=== PATIENT | male | born 1950 | race Caucasian/White ===

== ENCOUNTER 2016-12-21 05:49 | Day surgery (SDC) | payer BC ==
[~2016-12-21] VITALS: Ht 167.6 cm; Wt 91.7 kg
[~2016-12-21 05:49] MED LIST: ALBU6.7H4 IH; ASPI-558 PO; BENA10TA3 PO; CARV6.252 PO; DOXA8TAB3 PO; FISH1CAP51 PO; IBUP-1324 PO; MULT-37 PO; OMEP-29 PO; SIMV20TA89 PO
--- OUTSIDE RECORDS SUMMARY | 2016-12-21 05:53 | XMS REPORT | Continuity of Care Document ---
Author Author [facility] Address Unknown Phone Unavailable Allergies Active Description Code Type Severity Reaction Onset Reported/Identified Relationship to Patient Clinical Status Yes No Known Allergies No Known Allergies Drug Allergy Unknown N/A 08/10/2015 Medications Problems Date Dx Coded Attending Type Code Diagnosis Diagnosed By 08/10/2015 Tony Millard MD E78.5 HYPERLIPIDEMIA, UNSPECIFIED 08/10/2015 Tony Millard MD E87.1 HYPO-OSMOLALITY AND HYPONATREMIA 08/10/2015 Tony Millard MD G47.33 OBSTRUCTIVE SLEEP APNEA (ADULT) (PEDIATRIC ) 08/10/2015 Tony Millard MD I10 ESSENTIAL (PRIMARY) HYPERTENSION 08/10/2015 Tony Millard MD J45.909 UNSPECIFIED ASTHMA, UNCOMPLICATED 08/10/2015 Tony Millard MD K21.9 GASTRO-ESOPHAGEAL REFLUX DISEASE WITHOUT ESOPHAGIT 08/10/2015 Tony Millard MD M48.06 SPINAL STENOSIS, LUMBAR REGION 08/10/2015 Tony Millard MD M54.16 RADICULOPATHY, LUMBAR REGION 08/10/2015 Tony Millard MD M54.5 LOW BACK PAIN 08/10/2015 Tony Millard MD M96.1 POSTLAMINECTOMY SYNDROME, NOT ELSEWHERE CLASSIFIED 08/10/2015 Tony Millard MD M48.06 SPINAL STENOSIS, LUMBAR REGION 08/10/2015 Tony Millard MD M54.5 LOW BACK PAIN Procedures Code Description Performed By Performed On 6LN06HC EXCISION OF LUMBAR VERTEBRAL DISC, OPEN APPROACH Tony Millard MD 08/10/2015 [id number] FUSION 2-4 L JT W INTBD FUS DEV, ANT APPR A COL O Tony Millard MD 08/10/2015 [id number] FUSION 2-4 L JT W NONAUT SUB, ANT APPR A COLFREEDOM MD, [place] 08/10/2015 Results Test Result Range CBC - 08/11/15 05:33 MEAN CELL HGB 28.5 pg 27.0-33.0 MEAN CELL HGB CONCENTRATION 34.9 g/dL 32.0-37.0 MEAN CELL VOLUME 81.7 fl 80.0-100.0 RED BLOOD CELL 3.93 m/cumm 4.00-6.00 RED CELL DISTRIBUTION WIDTH 14.0 % 11.0- 15.6 WHITE BLOOD CELL 7.4 k/cumm 5.0-10.0 HEMOGLOBIN 11.2 gm/dL 14.0-18.0 HEMATOCRIT 32.1 % 40.0-54.0 PLATELET COUNT 187 k/cumm 150-400 METABOLIC PANEL, BASIC - 08/11/15 05:33 POTASSIUM 4.1 mmol/L 3.5-5.3 EST GFR (MDRD) > 60 mL/min > 59 ANION GAP 8 mmol/L 5-15 EST CrCl (CG) > 60 mL/min > 59 GLUCOSE 153 mg/dL 70-99 CALCIUM 8.5 mg/dL 8.5-10.1 BLOOD UREA NITROGEN 15 mg/dL 7-20 CREATININE 0.9 mg/dL 0.7-1.3 SODIUM 130 mmol/L 135-148 CHLORIDE 100 mmol/L 98-110 CARBON DIOXIDE 22 mmol/L 21-32 METABOLIC PANEL, BASIC - 08/12/15 08:31 POTASSIUM 4.4 mmol/L 3.5-5.3 EST GFR (MDRD) > 60 mL/min > 59 ANION GAP 7 mmol/L 5-15 EST CrCl (CG) > 60 mL/min > 59 GLUCOSE 177 mg/dL 70-99 CALCIUM 8.5 mg/dL 8.5-10.1 BLOOD UREA NITROGEN 15 mg/dL 7-20 CREATININE 1.0 mg/dL 0.7-1.3 SODIUM 132 mmol/L 135-148 CHLORIDE 99 mmol/L 98-110 CARBON DIOXIDE 26 mmol/L 21-32 Encounters ACCT No. Visit Date/Time Discharge Status Pt. Type Provider Facility Loc./Unit Complaint [id number] 09/24/2014 11:53:48 09/24/2014 23:59:59 CLS Outpatient [id number] 09/23/2014 09:54:25 09/23/2014 09:54:27 DIS Outpatient [id number] 09/23/2014 09:54:09 09/23/2014 09:54:10 DIS Outpatient [id number] 09/23/2014 09:47:49 09/23/2014 09:47:49 DIS Outpatient [id number] 09/23/2014 09:34:47 09/23/2014 09:34:47 DIS Outpatient [id number] 09/23/2014 09:34:46 09/23/2014 09:34:47 DIS Outpatient [id number] 09/23/2014 09:34:12 09/23/2014 09:34:12 DIS Outpatient [id number] 09/23/2014 09:34:11 09/23/2014 09:34:11 DIS Outpatient [id number] 09/23/2014 08:32:28 09/23/2014 08:32:28 DIS Outpatient [id number] 09/23/2014 08:04:41 09/23/2014 08:04:41 DIS Outpatient [id number] 09/23/2014 08:04:39 09/23/2014 08:04:39 DIS Outpatient [id number] 09/23/2014 08:04:38 09/23/2014 08:04:38 DIS Outpatient [id number] 09/23/2014 08:04:37 09/23/2014 08:04:37 DIS Outpatient [id number] 09/23/2014 08:04:34 09/23/2014 08:04:34 DIS Outpatient [id number] 09/23/2014 08:04:28 09/23/2014 08:04:28 DIS Outpatient [id number] 09/23/2014 08:04:05 09/23/2014 08:04:06 DIS Outpatient [id number] 09/23/2014 08:04:01 09/23/2014 08:04:01 DIS Outpatient [id number] 09/23/2014 08:03:57 09/23/2014 08:03:57 DIS Outpatient [id number] 09/23/2014 08:03:56 09/23/2014 08:03:56 DIS Outpatient
--- OUTSIDE RECORDS SUMMARY | 2016-12-21 05:53 | XMS REPORT | Continuity of Care Document ---
Author Author [facility] Organization [facility] Address Unknown Phone Unavailable Support Name Relationship Address Phone BAYRON PEÑA MD Caregiver [address] [place] [address] LUIS FERNANDO CASTELLANOS Next Of Kin [address] [place] [address] Insurance Providers Payer Name Policy Number Subscriber Name Relationship [facility] [id number] Eric Castellanos 19 Self Advance Directives Directive Response Recorded Date/Time Ordered Resuscitation Status Full Code 02/13/14 9:38am Problems No known problems or medical conditions. Medications Medication Dose Route Sig Days/Qty Instructions Order Date Discontinued Date Status Aspirin 81 Mg PO DAILY 02/12/14 Active Calcium Citrate/Vitamin D3 1 Each PO DAILY 02/12/14 02/16/14 Discontinued Carvedilol 3.125 Mg PO TWICE A DAY 02/12/14 Active Doxazosin Mesylate 8 Mg PO BEDTIME 02/12/14 Active Albuterol Sulfate 2 Puff IH NEEDED 02/12/14 Active Simvastatin 20 Mg PO DAILY 02/12/14 Active Acetaminophen 500-1000 Mg PO NEEDED 02/12/14 Active Cholecalciferol (Vitamin D3) 2,000 Unit PO DAILY 02/12/14 Active Ibuprofen 200 Mg PO NEEDED 02/12/14 Active Ramipril 5 Mg PO DAILY 02/12/14 Active Omeprazole 20 Mg PO BEFORE BREAKFAST 02/12/14 Active Glucosa Ramirez 2KCL/Chondroitin Ramirez 1 Cap PO TWICE A DAY 02/12/14 Active [place]-3 Fatty Acids/Fish Oil 1 Each PO TWICE A DAY 02/12/14 Active Social History Social History Problem Response Recorded Date/Time Smoking Status Never smoker 02/12/2014 2:10pm Chewing Tobacco Status No 02/12/2014 2:10pm Hx Substance Use No 02/12/2014 2:10pm Hx Alcohol Use No 02/12/2014 2:10pm Hospital Discharge Instructions No hospital discharge instructions. Plan of Care No plan of care. Functional Status No functional status results. Allergies, Adverse Reactions, Alerts Allergen Type Severity Reaction Status Last Updated Niacin Allergy Unknown ITCHING,TINGLING FEELING Active 02/12/14 Immunizations Name Given Type Hx Influenza Vaccination Y FALL 2012 Historical Hx Pneumococcal Vaccination No Historical Hx Influenza Vaccination Y FALL 2012 Historical Vital Signs Acute Vital Signs Vital Response Date/Time Temperature (Fahrenheit) 97.6 deg F (96.8 - 99.1) Temperature (Calculated Celsius) 36.17534 degrees C (36.0 - 37.3) Temperature Source Temporal Pulse Rate (adult) 66 bpm (60 - 100) Respiratory Rate 16 breaths/min (10 - 20) O2 Sat by Pulse Oximetry 96 % (90 - 100) Blood Pressure 169/88 mm Hg Blood Pressure Source Automatic Cuff Height 5 ft 6 in Weight 198 lb Body Mass Index 31.0 kg/m^2 Results Test Source Date Result Interp. Ref. Range Comments Anion Gap December 13, 2007 6:01am 7.9 MEQ/L N 5-15 BUN/Creatinine Ratio December 12, 2007 6:05am 14 RATIO DN 6-26 Basophils # (Auto) December 10, 2007 12:55pm 0.0 T/MM3 N 0-0.2 Basophils (%) (Auto) December 10, 2007 12:55pm 0.6 % N 0-2 Blood Urea Nitrogen December 12, 2007 6:05am 10 MG/DL DN 9-20 Calcium Level December 12, 2007 6:05am 8.4 MG/DL DN 8.4-10.2 Calculated Osmolality December 12, 2007 6:05am 249 MOSM/KG L 273-286 Carbon Dioxide Level December 13, 2007 6:01am 27 MEQ/L N 22-30 Chloride Level December 13, 2007 6:01am 103 MEQ/L DN 98-107 Creatinine December 12, 2007 6:05am 0.7 MG/DL L 0.8-1.5 Eosinophils # (Auto) December 10, 2007 12:55pm 0.4 T/MM3 N 0-0.5 Eosinophils (%) (Auto) December 10, 2007 12:55pm 7.5 % H 0-4 Glucose Level December 12, 2007 6:05am 108 MG/DL H 74-106 Hematocrit December 13, 2007 6:01am 27.9 % L 41-53 Hemoglobin December 10, 2007 11:02pm 11.7 GM/DL DL 13.5-17.5 Lymphocytes # (Auto) December 10, 2007 12:55pm 1.6 T/MM3 N 1-4.8 Lymphocytes (%) (Auto) December 10, 2007 12:55pm 30.5 % N 23-45 Mean Corpuscular Hemoglobin December 10, 2007 12:55pm 27.8 UUG N 26-34 Mean Corpuscular Hemoglobin Concent December 10, 2007 12:55pm 34.9 GM/DL N 31-37 Mean Corpuscular Volume December 10, 2007 12:55pm 79.7 UM3 L 80-100 Mean Platelet Volume December 10, 2007 12:55pm 8.5 UM3 N 7.4-10.4 Monocytes # (Auto) December 10, 2007 12:55pm 0.5 T/MM3 N 0-0.8 Monocytes (%) (Auto) December 10, 2007 12:55pm 9.2 % H 0-9.0 Neutrophils # (Auto) December 10, 2007 12:55pm 2.8 T/MM3 N 1.8-7.7 Neutrophils (%) (Auto) December 10, 2007 12:55pm 52.2 % N 33-66 Platelet Count December 10, 2007 12:55pm 257 T/MM3 N 130-400 Potassium Level December 13, 2007 6:01am 4.6 MEQ/L DN 3.6-5 RDW Standard Deviation December 10, 2007 12:55pm 41.4 FL N 36.9-50.2 Red Blood Count December 10, 2007 12:55pm 5.03 M/MM3 N 4.50-5.90 Sodium Level December 13, 2007 6:01am 138 MEQ/L DN 134-144 Urine Bilirubin December 10, 2007 12:55pm Negative - COMMENT C&S IF WBC GREATER THAN 10 OR BACTERIA 1+ OR MOREHas specimen been collected/obtained? Y Urine Blood December 10, 2007 12:55pm Negative - COMMENT C&S IF WBC GREATER THAN 10 OR BACTERIA 1+ OR MOREHas specimen been collected/obtained? Y Urine Collection Type December 10, 2007 12:55pm Voided - COMMENT C&S IF WBC GREATER THAN 10 OR BACTERIA 1+ OR MOREHas specimen been collected/obtained? Y Urine Color December 10, 2007 12:55pm Yellow - COMMENT C&S IF WBC GREATER THAN 10 OR BACTERIA 1+ OR MOREHas specimen been collected/obtained? Y Urine Glucose (UA) December 10, 2007 12:55pm Negative - COMMENT C&S IF WBC GREATER THAN 10 OR BACTERIA 1+ OR MOREHas specimen been collected/obtained? Y Urine Ketones December 10, 2007 12:55pm Negative - COMMENT C&S IF WBC GREATER THAN 10 OR BACTERIA 1+ OR MOREHas specimen been collected/obtained? Y Urine Leukocyte Esterase December 10, 2007 12:55pm Negative - COMMENT C& S IF WBC GREATER THAN 10 OR BACTERIA 1+ OR MOREHas specimen been collected/ obtained? Y Urine Nitrite December 10, 2007 12:55pm Negative - COMMENT C&S IF WBC GREATER THAN 10 OR BACTERIA 1+ OR MOREHas specimen been collected/obtained? Y Urine Protein December 10, 2007 12:55pm Negative - COMMENT C&S IF WBC GREATER THAN 10 OR BACTERIA 1+ OR MOREHas specimen been collected/obtained? Y Urine RBC December 10, 2007 12:55pm Not Performed - Urine Specific [place] December 10, 2007 12:55pm 1.015 - COMMENT C&S IF WBC GREATER THAN 10 OR BACTERIA 1+ OR MOREHas specimen been collected/obtained? Y Urine Turbidity December 10, 2007 12:55pm Clear - COMMENT C&S IF WBC GREATER THAN 10 OR BACTERIA 1+ OR MOREHas specimen been collected/obtained? Y Urine Urobilinogen December 10, 2007 12:55pm Normal EU/DL - COMMENT C&S IF WBC GREATER THAN 10 OR BACTERIA 1+ OR MOREHas specimen been collected/ obtained? Y Urine WBC December 10, 2007 12:55pm Not Performed - Urine pH December 10, 2007 12:55pm 6.5 - COMMENT C&S IF WBC GREATER THAN 10 OR BACTERIA 1+ OR MOREHas specimen been collected/obtained? Y White Blood Count December 10, 2007 12:55pm 5.3 T/MM3 N 4.5-11.0 Lab Scanned Report July 19, 2009 9:40am BLOOD BANK DOCUMENTATION [id number] - Gram Stain Knee, Intraoperative Site-Joint Cavity December 10, 2007 2:20pm Procedures Procedure Status Date Provider(s) Colonoscopy completed 02/16/14 BAYRON PEÑA MD
--- OUTSIDE RECORDS SUMMARY | 2016-12-21 05:54 | XMS REPORT | Continuity of Care Document ---
Author Author [facility] Address Unknown Phone Unavailable Allergies Active Description [...] Procedures Code Description Performed By Performed On 2DX32TS EXCISION OF LUMBAR VERTEBRAL DISC, OPEN APPROACH Tony Millard MD 08/10/2015 [id number] FUSION 2-4 L JT W INTBD FUS DEV, ANT APPR A COL O Tony Millard MD 08/10/2015 [id number] FUSION 2-4 L JT W NONAUT SUB, [...] Status Pt. Type Provider Facility Loc./Unit Complaint [id number] 09/24/2014 11:53:48 09/24/2014 23:59:59 CLS Outpatient [id number] 09/23/2014 09:54:25 09/23/2014 09:54:27 DIS Outpatient [id number] 09/23/2014 09:54:09 09/23/2014 09:54:10 DIS Outpatient [id number] 09/23/2014 09:47:49 09/23/2014 09:47:49 DIS Outpatient [id number] 09/23/2014 09:34:47 09/23/2014 09:34:47 DIS Outpatient [id number] 09/23/2014 09:34:46 09/23/2014 09:34:47 DIS Outpatient [id number] 09/23/2014 09:34:12 09/23/2014 09:34:12 DIS Outpatient [id number] 09/23/2014 09:34:11 09/23/2014 09:34:11 DIS Outpatient [id number] 09/23/2014 08:32:28 09/23/2014 08:32:28 DIS Outpatient [id number] 09/23/2014 08:04:41 09/23/2014 08:04:41 DIS Outpatient [id number] 09/23/2014 08:04:39 09/23/2014 08:04:39 DIS Outpatient [id number] 09/23/2014 08:04:38 09/23/2014 08:04:38 DIS Outpatient [id number] 09/23/2014 08:04:37 09/23/2014 08:04:37 DIS Outpatient [id number] 09/23/2014 08:04:34 09/23/2014 08:04:34 DIS Outpatient [id number] 09/23/2014 08:04:28 09/23/2014 08:04:28 DIS Outpatient [id number] 09/23/2014 08:04:05 09/23/2014 08:04:06 DIS Outpatient [id number] 09/23/2014 08:04:01 09/23/2014 08:04:01 DIS Outpatient [id number] 09/23/2014 08:03:57 09/23/2014 08:03:57 DIS Outpatient [id number] 09/23/2014 08:03:56 09/23/2014 08:03:56 DIS Outpatient
--- OUTSIDE RECORDS SUMMARY | 2016-12-21 05:54 | XMS REPORT | Continuity of Care Document ---
Author Author [facility] Organization [facility] Address Unknown Phone Unavailable Support Name Relationship Address Phone BAYRON PEÑA MD Caregiver [address] [place] [address] Unavailable PANFILO HELTON MD Caregiver [address] [place] [address] Unavailable LUIS FERNANDO CASTELLANOS Next Of Kin [address] [place] [address] Insurance Providers Guarantor Eric Castellanos Address [address] [place] [address] Email [email or web address] [facility] Policy Number [id number] Subscriber's Name Eric Castellanos Relationship 18 Self Group Number [id number] Effective Date 05 Advance Directives Directive Response Recorded Date/Time Ordered Resuscitation Status Full Code 02/13/14 9:38am Resuscitation Documents on File Yes 10/19/16 6:10am DPOA for Healthcare Only Yes 10/19/16 6:10am Living Will Yes 10/19/16 6:10am Problems No problem information available. Medications Current Home Medications Medication Dose Units Route Directions Days Qty Instructions Start Date Albuterol Sulfate (Proventil Hfa) 6.7 Gm Hfa.aer.ad 2 Puff Inhalation As Needed 02/12/14 Aspirin (Aspir 81) 81 Mg Tablet. 81 Mg Oral Daily 02/12/14 Benazepril Hcl 10 Mg Tablet 1 Tab Oral Daily 10/18/16 Carvedilol 6.25 Mg Tablet 1 Tab Oral Twice Daily With Meals BEST WITH FOOD. 10/18/16 Doxazosin Mesylate 8 Mg Tablet 8 Mg Oral Bedtime 02/12/14 Hydrocodone/Acetaminophen ([place] 5-325 Tablet) 5-325 Tablet 1-2 Tab Oral Every 6 Hours as needed for Pain 30 Tablet This medication contains Tylenol , do not take more than 3,000 mg of Tylenol in a 24 hr period. 03/02/17 Ibuprofen 200 Mg Tablet 200 Mg Oral As Needed 02/12/14 Multivitamin (Daily Multiple Vitamin) 1 Each Tablet Oral Daily 10/19/16 [place]-3 Fatty Acids/Fish Oil ([place] 3 Fish Oil Softgel) 1 Each Capsule. 1 Each Oral Twice A Day 02/12/14 Omeprazole (Prilosec) 20 Mg Capsule. 20 Mg Oral Before Breakfast 02/12/14 Polyethylene Glycol 3350 (Miralax) 17 Gm Powd.pack 17 G Oral Daily as needed for Constipation 1 Bottle Take 17 Grams (1 capful), by mouth, once a day. 10/19/16 Simvastatin 20 Mg Tablet 20 Mg Oral Bedtime 02/12/14 Past Home Medications Medication Directions Ordered Status Calcium Citrate/Vitamin D3 (Citracal + D Caplet) 1 Each Tablet, 1 Each Oral Daily 02/12/14 Discontinued Carvedilol (Coreg) 3.125 Mg Tablet, 3.125 Mg Oral Twice A Day 02/12/14 Discontinued Social History Social History Problem Response Recorded Date/Time Onset Date Status Reason for Hospitalization LEFT CARPAL TUNNEL SYNDROME 10/19/2016 7:59am Not Applicable Not Applicable Chewing Tobacco Status No 02/12/2014 2:10pm Not Applicable Not Applicable Hx Substance Use No 10/19/2016 6:18am Not Applicable Not Applicable Hx Alcohol Use Y OCC 10/19/2016 6:18am Not Applicable Not Applicable Has the pt used tobacco in the last 12 months No 10/19/2016 6:18am Not Applicable Not Applicable Query Response Start Date Stop Date Smoking Status Never smoker Hospital Discharge Instructions Instructions: Care Instructions: I was in the hospital because (patient own words): LEFT CARPAL TUNNEL Discharge Diet: Resume your normal diet as tolerated. Discharge Activity: -Exercises are to be performed 2-3 times daily. -DO NOT lift any weight heavier than a coffee cup -Gentle range of motion of the wrist Follow Up Appointments: Follow up as scheduled. DR HELTON-NOVEMBER 01, 2016 0830 Pending Lab / Results: No Pending Lab Patient Instructions: DO NOT DRIVE, OPERATE MACHINERY, DRINK ALCOHOL, OR SIGN IMPORTANT PAPERS FOR 24 HOURS OR WHILE TAKING PAIN MEDICATIONS. Expected Signs/Symptoms: There will be pain at the incision site. Expect possible wrap swelling of the fingers. The jun may be loosened if it feels too tight. Call your physician if you are unable to feel or move your fingers. Notify Physician If: You should contact our office if you develop significant drainage from the surgical incision, redness, or fever about 102 degrees. During Business Hours:: Contact the office at [phone] After Business Hours:: After office hours, please call [facility] at [phone] and have the tractor drill operator page the physician. Pain Management/Treatment: You will be given a prescription for pain medication. You will have post-surgical pain for the first week after surgery. An anti-inflammatory medication may also be taken (mobic, ibuprofen, or naproxen). Wound/Incision Care: Keep the dressing clean and dry. On post-op day #4 you may remove the dressing. The incision needs to stay dry until you follow up with your physician. You may shower. DO NOT apply creams or ointments (bacitracin, triple antibiotic) to the incisions. Do not soak the wrist in water or go swimming until your sutures are removed. Condition at time of discharge: Good Plan of Care Discharge Date 10/19/16 8:45am Prescriptions See Medication Section Functional Status Query Response Date Recorded Ability to complete ADL's impeded by No change October 19, 2016 6:10am Allergies, Adverse Reactions, Alerts Allergen Type Severity Reaction Status Last Updated Niacin Allergy Unknown ITCHING,TINGLING FEELING Active 10/19/16 Immunizations Query Response on File Recorded Date/Time Hx Influenza Vaccination Y MAY 2016 10/19/16 6:18am Hx Pneumococcal Vaccination Y MAY 2016 10/19/16 6:18am Hx Influenza Vaccination Y MAY 2016 10/19/16 6:18am Vital Signs Acute Vital Signs Vital Response Date/Time Temperature (Fahrenheit) 98.7 deg F (96.8 - 99.1) 10/19/2016 7:39am Temperature (Calculated Celsius) 37.16216 degrees C (36.0 - 37.3) 10/19/2016 7:39am Temperature Source Temporal 10/19/2016 7:39am Pulse Rate (adult) 62 bpm (60 - 100) 10/19/2016 8:10am Respiratory Rate 17 breaths/min (10 - 20) 10/19/2016 8:10am O2 Sat by Pulse Oximetry 99 % (90 - 100) 10/19/2016 8:10am Oxygen Delivery Method Room Air 10/19/2016 8:10am Blood Pressure 137/84 mm Hg 10/19/2016 8:10am Blood Pressure Source Automatic Cuff 10/19/2016 8:10am Height (Feet) 5 feet 10/19/2016 5:59am Height (Inches) 6.75 inches 10/19/2016 5:59am Weight (Kilograms) 92.000 kg 10/19/2016 5:59am Body Mass Index (BMI) 32.0 10/19/2016 5:59am Results No known relevant diagnostic tests, laboratory data and/or discharge summary. Procedures Procedure Status Date Provider(s) Carpal tunnel release, left Completed 10/19/16 PANFILO HELTON MD Encounters Encounter Location Arrival/Admit Date Discharge/Depart Date Attending Provider Departed [facility] 10/19/16 5:46am 10/19/16 8: 45am PANFILO HELTON MD
[2016-12-21 06:07] VITALS: Ht 167.6 cm; Wt 91.7 kg
[2016-12-21 06:08] VITALS: BP 144/75; PULSE 68; RESP 14; TEMP 98.6; O2SAT 97
--- NOTE | 2016-12-21 06:40 | ANESPREOP ---
Anesthesia Record Date and Time DATE: 12/21/16 TIME: 06:35 Proposed Surgical Procedure RT CTR Allergies: Coded Allergies: niacin (Verified Allergy, Unknown, ITCHING,TINGLING FEELING, 12/21/16) Ht/Wt/BMI Height: 5 ' 6.00 " Weight: 91.700 kg BMI: 32.6 kg/m2 Vital Signs Date Time Temp Pulse Resp B/P Pulse Ox O2 Delivery O2 Flow Rate FiO2 12/21/16 06:08 98.6 68 14 144/75 97 Room Air Medications Inpatient Medications Current Medications Medications (Trade) Dose Ordered Sig/Liana Start Time Stop Time Status Last Admin Dose Admin Lactated Ringer's (Lactated Ringers) 1,000 ml @ 50 mls/hr Q20H 12/21/16 07:00 Albuterol Sulfate (Proventil Hfa) 6.7 Gm Hfa.aer.ad, 2 PUFF IH PRN, (Reported) Last Taken: on Unknown Date & Time Aspirin (Aspir 81) 81 Mg Tablet.dr, 81 MG PO DAILY, (Reported) Last Taken: on 12/13/16 Benazepril HCl (Benazepril HCl) 10 Mg Tablet, 1 TAB PO DAILY, (Reported) Last Taken: on 12/21/16 0500 Carvedilol (Carvedilol) 6.25 Mg Tablet, 1 TAB PO BIDWM, (Reported) BEST WITH FOOD. Last Taken: on 12/21/16 0500 Doxazosin Mesylate (Doxazosin Mesylate) 8 Mg Tablet, 8 MG PO HS, (Reported) Last Taken: on 12/20/16 2200 Ibuprofen (Ibuprofen) 200 Mg Tablet, 200 MG PO PRN, (Reported) Last Taken: on 12/14/16 Multivitamin (Daily Multiple Vitamin) 1 Each Tablet , PO DAILY, (Reported) Last Taken: on 12/20/16 2200 [place]-3 Fatty Acids/Fish Oil ([place] 3 Fish Oil Softgel) 1 Each Capsule.dr, 1 EACH PO BID, (Reported) Last Taken: on 12/17/16 Simvastatin (Simvastatin) 20 Mg Tablet, 20 MG PO HS , (Reported) Last Taken: on 12/20/16 2200 Currently on Beta Indira: Yes Beta Indira not given due to: Taken Day of Surgery Medical/Surgical History Anesthesia PMH: Reports: *Hypertension, Arthritis (OA), Asthma (HASN'T USED INHALER FOR OVER 6 MONTHS), Hyperlipidemia, Sleep Apnea, Denies: *Angina, * Diabetes, *Dyspnea, *IN, Anesthesia Reactions (NO AIRWAY/INTUBATION PROBLEMS), Blood Transfusion Reac, CHF, COPD, CVA/Stroke/TIA, Cancer, Clotting Problems, Deep Vein Thrombosis, Glaucoma, Hepatitis, Hiatal Hernia, Malignant Hyperthermia , Pneumonia, Reflux (NO MED FOR OVER A YEAR), Renal Disease, Seizures, Thyroid Disease, Tuberculosis Smoking Status: Never smoker Has pt. smoked today?: No Use Chewing Tobacco?: No Second Hand Exposure: No Substance Use Type: does not use Alcohol Intake: other (Glass of wine daily) Past Surgical History Orthopedic Surgeries: Yes - LAMINECTOMY L2-4,FUSION,L ACL/PMM,R MENISCUS,JHOANA TKA Abdominal Surgeries: No Genitourinary Surgeries: No Cardiac Surgeries: No Endocrine Surgeries: No Reproductive Surgeries: Yes - PROSTATE BX Neurological Surgeries: Yes - LT CTR Ear Surgeries: No Nose Surgeries: No Throat Surgeries: No Other Surgeries: Yes - COLONOSCOPY,WILBERTO Anesthesia Adverse Reactions: FOUND none Family Hx of Anesthesia Advers: none Hx of Motion Sickness: No Pertinent Findings EKG Rhythm: Sinus Rhythm Physical Exam Respiratory: Lungs clear Cardiovascular: FOUND Regular rate, rhythm, FOUND No murmur Airway Assessment Mallampati Score: II TMD: 3 Fingerbreadths Neck Extension: Good Overall Assessment: No Airway Concerns ASA: 2 Plan Anesthesia Plan: LMA Discussion Discussed risks/options/alternatives of anesthesia and questions answered. Patient consents. Nursing pain assessment noted. Attestation Statement Prior to the delivery of any anesthetic medication, I examined the patient, developed the plan, obtained the patient's consent and discussed the risk and benefits of the procedure with the patient/guardian. JAVIER TURNER December 21, 2016 06:40
[2016-12-21] MEDS ORDERED: PROPOFOL 500mg 50 ML IV ONE (06:48)
[2016-12-21] MEDS ORDERED: FENTANYL 100mcg/2ml INJECTION ONE (06:50)
[2016-12-21] MEDS ORDERED: LIDOCAINE 1% (10mg/ml) 30ml SDV ONE (06:55)
[2016-12-21] MEDS ORDERED: BUPIVACAINE 0.25% (2.5mg/ml) INJ 30ml SDV ONE (06:55)
[2016-12-21] MEDS ORDERED: LIDOCAINE 1% (10mg/ml) 2ml SDV INJ ONE (07:00)
[2016-12-21] MEDS ORDERED: LR 1,000 ML IV SCH (07:00)
[2016-12-21] MEDS ORDERED: HYDR-4246 PO (07:18)
[2016-12-21] MEDS ORDERED: POLY17PO6 PO (07:18)
[2016-12-21 07:42] VITALS: BP 105/59; PULSE 69; RESP 16; TEMP 97.5; O2SAT 100
--- NOTE | 2016-12-21 07:42 | PDOPERATE ---
Operative Note Date of Opeation 12/21/16 Preoperative Diagnosis Right carpal tunnel syndrome. Postoperative Diagnosis Right carpal tunnel syndrome. Operation Right carpal tunnel release. Surgeon Guy Jane MD Complications None. Anesthesia TIVA with local. Tourniquet Time Please see Anesthesia Record. Estimated Blood Loss Minimal. Description of Procedure The patient and the operative extremity were identified and marked in the preoperative holding area. The patient was brought back to the operating suite and placed supine on the operating table. The patient was placed under general anesthesia. The right upper extremity was prepped and draped in my normal sterile fashion. A timeout was preformed. The arm was exsanguinated, and the tourniquet was inflated up to 250 mmHg. The incision site was injected with 0.25% Marcaine and 1% Lidocaine. A 2.5 cm incision was made just ulnar to the thenar crease.Sharp dissection was carried down through the skin and subcutaneous fat, down to the palmar fascia and down to the transverse carpal ligament which was then excised under direct visualization, first with a scalpel and then completed both proximally and distally with scissors under direct visualization. The wound was then irrigated , and the incision was closed with a 3-0 nylon in simple interrupted fashion. A sterile soft dressing was placed. The tourniquet was let down. The patient was allowed to awaken from general anesthesia and was taken to the recovery room under the care of Anesthesia. The patient tolerated the procedure well. There were no complications. PANFILO JANE MD December 21, 2016 07:42
[2016-12-21 07:55] VITALS: BP 104/56; PULSE 66; RESP 16; O2SAT 98
[2016-12-21] MEDS ORDERED: CEFAZOLIN 1 GRAM INJECTION IV ONE (08:00)
--- NOTE | 2016-12-21 08:06 | ANESPO ---
Post-Op Note Date 12/21/16 Time: 08:05 Status Pt Participated in Evaluation: Pt participated in person Vital Signs Date Time Temp Pulse Resp B/P Pulse Ox O2 Delivery O2 Flow Rate FiO2 12/21/16 07:55 66 16 104/56 98 Room Air 12/21/16 07:42 97.5 5.00 Respiratory Function: Airway patent, Regular respirations Cardiovascular Function: Regular pulse Mental Status: Alert/oriented Pain Level Intensity: 0 Hydration: Taking po fluids Complications during Recovery None apparent Follow-Up Instructions Instructions Per Surgeon NOEMI HENRIQUEZ CRNA December 21, 2016 08:06
[2016-12-21 08:10] VITALS: BP 117/55; PULSE 61; RESP 16; TEMP 97.4; O2SAT 97
[2016-12-21 08:25] VITALS: BP 115/59; PULSE 61; RESP 16; O2SAT 99
--- NOTE | 2016-12-22 06:39 | HPF ---
CHIEF COMPLAINT Right hand numbness. HPI This is a 66-year-old gentleman complaining of numbness and tingling in his fingers. The numbness bothers him with many daily activities and wakes him at night. He has tried splinting and other conservative treatment without improvement. Nerve conduction studies are consistent with median nerve compression. Due to his poor response to conservative measures, he is admitted for elective carpal tunnel release on the right. PAST HISTORY, SOCIAL HISTORY, FAMILY HISTORY, MEDICATIONS AND ALLERGIES All are available on the chart and reviewed in the EMR. REVIEW OF SYSTEMS Negative for fever, chills, skin infections, rashes or seizures. Positive for numbness involving his right hand as that stated above in the HPI. PHYSICAL EXAM GENERAL: A 66-year-old gentleman who is alert and oriented, in no distress. He is well-developed and well-nourished. EXTREMITIES: Exam of the right upper extremity shows he has normal range of motion of the hand and wrist. Has good radial pulse and normal capillary refill. He does report decreased sensation in the right hand over median nerve distribution. He has a positive Tinel's sign at the wrist. IMPRESSION Right carpal tunnel syndrome. PLAN Dr. Jane has discussed the surgical procedure, risks versus benefits and possible complications. Questions have been answered to the patient's satisfaction. Will plan to proceed with a right carpal tunnel release on 2016. TAURUS
== END 2016-12-21 08:30 | disposition home or self-care (01) ==
LOC: SCU 05:49
PROVIDERS: ATTEND Orthopaedic Surgery
DX: G56.01 Carpal tunnel syndrome, right upper limb (principal); I10 Essential (primary) hypertension; E78.00 Pure hypercholesterolemia, unspecified; K21.9 Gastro-esophageal reflux disease without esophagitis; J45.909 Unspecified asthma, uncomplicated; G47.33 Obstructive sleep apnea (adult) (pediatric); Z79.82 Long term (current) use of aspirin; Z79.899 Other long term (current) drug therapy; Z99.81 Dependence on supplemental oxygen; Z88.8 Allergy status to other drugs, medicaments and biological substances; Z96.653 Presence of artificial knee joint, bilateral
CPT/HCPCS: 64721; J2704; J3010; J7120; S0020